=== PATIENT | male | born 1970 | race Caucasian/White ===

== ENCOUNTER 2019-04-11 16:25 | Emergency (ER) | payer OTHER ==
[~2019-04-11] VITALS: Ht 172.7 cm; Wt 78.9 kg
[2019-04-11 16:29] VITALS: BP 146/91
--- NOTE | 2019-04-11 16:36 | NUR ---
PT AMB TO BED 8 WITH STEADY GAIT
--- NOTE | 2019-04-11 16:41 | NUR ---
PT C/O DIZZINESS, NAUSEA, HEADACHE, SOB, INTERMITTENT PRESSURE-LIKE CHEST PAIN AFTER EXPOSURE TO [employer] ON LAST MONDAY. 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 PATIENT STATES PAIN OF 6/10 AT THIS TIME; VSS; PATIENT POSITIONED FOR COMFORT; HOB ELEVATED; BEDRAILS UP X1; BED DOWN. ER MD MADE AWARE OF PT STATUS.
[2019-04-11] MEDS ORDERED: ONDANSETRON 4 MG/2 ML VIAL IVP ONE (17:50)
[2019-04-11] MEDS ORDERED: KETOROLAC 30 MG/ML VIAL IVP ONE (17:50)
[2019-04-11] MEDS ORDERED: NACL 0.9% 1,000 ML IV ONE (17:50)
--- NOTE | 2019-04-11 18:00 | NUR ---
ECHOCARDIOLOGIST AT BEDSIDE.
--- NOTE | 2019-04-11 18:01 | NUR ---
EMT AT BEDSIDE FOR EKG.
[2019-04-11 18:14] LABS: BASOPHILS # (AUTO) 0.1 K/uL (0.00-0.22); BASOPHILS % (AUTO) 0.7 % (0.0-2.0); EOSINOPHILS # (AUTO) 0.1 K/uL (0-0.4); EOSINOPHILS % (AUTO) 1.9 % (0.0-4.0); HEMATOCRIT 46.9 % (36-52); HEMOGLOBIN 15.9 g/dL (12.0-18.0); LYMPHOCYTES # (AUTO) 2.1 K/uL (2.0-11.5); LYMPHOCYTES % (AUTO) 28.3 % (20.5-51.1); MEAN CORPUSCULAR HEMOGLOBIN 31 pg (27-31); MEAN CORPUSCULAR HGB CONC 34 g/dL (33-37); MEAN CORPUSCULAR VOLUME 92.6 fL (80-94); MONOCYTES # (AUTO) 0.5 K/uL (0.8-1.0); MONOCYTES % (AUTO) 7.5 % (1.7-9.3); NEUTROPHILS # (AUTO) 4.5 K/uL (1.8-7.7); NEUTROPHILS % (AUTO) 61.6 % (42.2-75.2); PLATELET COUNT (AUTO) 256 K/uL (140-450); RED BLOOD CELL COUNT(AUTO) 5.06 MIL/uL (4.20-6.10); WHITE BLOOD COUNT (AUTO) 7.3 K/uL (4.8-10.8)
--- NOTE | 2019-04-11 18:52 | NUR ---
PT IS RESTING IN BED WITH EYES OPENED. FAMILY MEMBER IS AT BEDSIDE.
--- NOTE | 2019-04-11 19:19 | NUR ---
Pt report given to JOCE Quiñones. Transfer of care at this time.
--- NOTE | 2019-04-11 19:22 | NUR ---
MD EVALUATING PATIENT AT THIS TIME.
[2019-04-11 20:00] VITALS: BP 121/78
--- NOTE | 2019-04-11 20:00 | NUR ---
Patient discharged with v/s stable. Written and verbal after care instructions given and explained. Patient alert, oriented and verbalized understanding of instructions. Ambulatory with steady gait. All questions addressed prior to discharge. ID band removed. Patient advised to follow up with PMD. Rx of MECLIZINE HYDROCHLORIDE given. Patient educated on indication of medication including possible reaction and side effects. Opportunity to ask questions provided and answered.
== END 2019-04-11 20:00 | disposition home or self-care (01) ==
LOC: MED 16:25
DX: T59.891A Toxic effect of other specified gases, fumes and vapors, accidental (unintentional), initial encounter (principal); G44.209 Tension-type headache, unspecified, not intractable; Y92.89 Other specified places as the place of occurrence of the external cause
CPT/HCPCS: 36415; 71045; 83880; 84484; 85025; 93005; 96361; 96374; 96375; 99284; J1885; J2405; J7030; Q0092